=== PATIENT | male | born 1935 | race Caucasian/White ===

== ENCOUNTER 2018-10-20 08:40 | Day surgery (SDC) | payer MEDICARE, BC ==
[2018-10-20] VITALS (8 sets, daily range): BP systolic 142–163; BP diastolic 76–88; PULSE 51–64; TEMP 97.9–98.3
[~2018-10-20] VITALS: Ht 177.8 cm; Wt 89.8 kg
[2018-10-20] MEDS ORDERED: NORCO 325 MG-51 TAB PO ×2 (09:35→13:32)
[2018-10-20] MEDS ORDERED: SYNTHROID0.1 MG/TAB PO (10:10)
[2018-10-20] MEDS ORDERED: PRINIVIL10 MG PO (10:11)
[2018-10-20] MEDS ORDERED: MAGNESIUM250 M1 PO (10:12)
[2018-10-20] MEDS ORDERED: TYLENOL PM EXTR1 TA1 PO (10:12)
[2018-10-20] MEDS ORDERED: MELATONIN5 M1 PO (10:12)
[2018-10-20] MEDS ORDERED: MULTI VITAMINS1 TAB PO (10:13)
[2018-10-20] MEDS ORDERED: CALTRATE 600 +1 TAB PO (10:13)
[2018-10-20] MEDS ORDERED: VITAMIN C500 MG PO (10:13)
[2018-10-20] MEDS ORDERED: ASPIRIN E.C. 8181 MG PO (10:14)
[2018-10-20] MEDS ORDERED: PROBIOTIC FORMU1 CAP PO (10:14)
--- NOTE | 2018-10-20 12:25 | NUR ---
Pt to [facility] [place] bay [facility] via cart from PACU. Pt drowsy, but awake and oriented x3. Pt denies pain or nausea. 4x4's to penis have small amount of bright red blood noted. Juice given per pt request. Family went out for lunch. Side rails upx2. Will continue to monitor. Call light within reach.
--- NOTE | 2018-10-20 12:40 | NUR ---
Pt continues to rest. Tolerating juice without difficulties. Pt denies need for food a this time. Call light within reach.
--- NOTE | 2018-10-20 12:55 | NUR ---
Pt incontent of small amount of urine. 4x4's changed. Charito care provided. New chux pad placed. Daughters brought to room. Pt denies pain or nausea. Call light within reach.
--- NOTE | 2018-10-20 13:10 | NUR ---
Pt continues to rest. Denies needs. Call light within reach.
[2018-10-20] MEDS ORDERED: SENOKOT S 50 MG1 TAB PO (13:32)
--- NOTE | 2018-10-20 13:40 | NUR ---
Pt visiting with daughters. Denies needs. Call light within reach.
--- NOTE | 2018-10-20 14:10 | NUR ---
Pt awake. Pt up to restroom with stand by assistance. Pt incontent of large amount of urine. Pt having small amount of bleeding comming from tip of penis. Pt assisted with carlos care. New 4x4's place to tip of penis. Underwear and maddie pad placed on pt. Pt back to room. IV site discontinued with all parts intact. Will assist pt with dressing. Call light within reach.
--- NOTE | 2018-10-20 14:45 | NUR ---
Discharge instructions reviewed. Pt and daughters voice understanding. 4x4's sent home with pt.
--- NOTE | 2018-10-20 14:55 | NUR ---
Pt escorted to private car via wheel chair. Pt accompanied home by his daughters.
== END 2018-10-20 14:55 | disposition home or self-care (01) ==
LOC: SDCO 08:40
DX: N47.1 Phimosis (principal); N48.0 Leukoplakia of penis; R35.0 Frequency of micturition; R35.1 Nocturia; N39.3 Stress incontinence (female) (male); R33.8 Other retention of urine; I10 Essential (primary) hypertension; E03.9 Hypothyroidism, unspecified; Z85.46 Personal history of malignant neoplasm of prostate; Z09 Encounter for follow-up examination after completed treatment for conditions other than malignant neoplasm; Z96.89 Presence of other specified functional implants; Z79.899 Other long term (current) drug therapy; Z80.42 Family history of malignant neoplasm of prostate; Z90.79 Acquired absence of other genital organ(s)
CPT/HCPCS: C1769; J0690; J1100; J2405; J2704; J3010; J7120